=== PATIENT | female | born 1990 | race Caucasian/White ===

== ENCOUNTER → 2020-06-09 | Outpatient (CLI) | payer MEDICAID ==
[2020-06-09 16:46] LABS: HCT 41.6 % (34.0-46.0); HGB 14.1 gm/dL (11.4-16.0); MCH 27.3 pg (25.0-35.0); MCHC 33.8 g/dL (31.0-37.0); MCV 80.9 fL (80.0-100.0); Mean Platelet Volume 7.5; Platelet Count 316 k/uL (150-450); RBC 5.14 m/uL (3.80-5.40); RDW 14.3 % (11.5-15.5); WBC 12.7 k/uL (3.8-10.6)
[2020-06-10 01:58] LABS: HIV 2 AB Non-Reactive (Non-Reactive); HIV AB P24 Non-Reactive (Non-Reactive); HIV P24 AG Non-Reactive (Non-Reactive)
[2020-06-10 04:25] LABS: Hepatitis B Surface Antigen Non-Reactive (Non-Reactive)
--- NOTE | 2020-06-10 07:16 | US ---
EXAMINATION TYPE: Transabdominal DATE OF EXAM: 06/09/2020 4:43 PM COMPARISON: NONE CLINICAL HISTORY: Z34.81, Z36 CONFIRM DATES. Confirm Dates EXAM PERFORMED: Transvaginal (TV) and Transabdominal (TA), endovaginal scanning performed for better evaluation of the EXAM MEASUREMENTS: GESTATIONAL AGE / DATING Physician Established: (8 weeks/4 days) EDC: 01/15/2021 Dates by LMP: (8 weeks/4 days) EDC: 01/15/2021 Dates by First Scan: No prior Dates by Current Scan for: (6 weeks/5 days) EDC: 01/28/2021 MATERNAL ANATOMY Uterus: 9.7 x 6.0 x 6.5 cm Right Ovary: 2.58 x 2.0 x 2.5 cm Left Ovary: 3.8 x 2.6 x 2.5 cm Post CDS / Adnexa: wnl Presence of free fluid: No Presence of corpus luteal cyst: Left Ovary= 2.3 x 2.0 x 2.2 cm Presence of subchorionic bleed: No GESTATION / SURVEY CRL: 1.2 cm (7 weeks/3 days) MSD: 1.6 cm (5 weeks/6 days) Yolk Sac (normal less than 6mm): 5mm Heart Rate: 155 bpm Rhythm: Normal IUP: Viable IUP Date of LMP: 04/10/2020 Single, viable IUP/ Gestational sac measuring small for crown rump length/ Yolk sac also measuring upper limits of normal IMPRESSION: Single viable intrauterine corresponding to ultrasound age 6 weeks 5 days with estimated da te of delivery 01/28/2021 as above.
== END | disposition home or self-care (01) ==
LOC: RADUSWWP 15:47
PROVIDERS: ATTEND Obstetrics & Gynecology
DX: Z36.9 Encounter for antenatal screening, unspecified (principal); Z3A.01 Less than 8 weeks gestation of pregnancy; Z34.81 Encounter for supervision of other normal pregnancy, first trimester
CPT/HCPCS: 76801; 76817; 82947; 85027; 86592; 86762; 86780; 86850; 86900; 86901; 87340; 87390

== ENCOUNTER → 2020-11-02 | Outpatient (CLI) | payer MEDICAID ==
[2020-11-02 15:25] LABS: MCH 26.7 pg (27.0-32.0); MCHC 32.4 g/dL (32.0-37.0); MCV 82.4 fL (80.0-97.0); Mean Platelet Volume 12.1 fL (9.5-12.2); Platelet Count 246 X 10*3/uL (140-440); RBC 4.49 X 10*6/uL (4.10-5.20); RDW 13.8 % (11.5-14.5); WBC 12.85 X 10*3/uL (4.50-10.00)
== END | disposition home or self-care (01) ==
LOC: LABWHC1 09:46
PROVIDERS: ATTEND Obstetrics & Gynecology
DX: Z34.82 Encounter for supervision of other normal pregnancy, second trimester (principal); Z3A.00 Weeks of gestation of pregnancy not specified
CPT/HCPCS: 36415; 82950; 85027

== ENCOUNTER 2020-12-21 09:35 | Outpatient (CLI) | payer MEDICAID ==
[2020-12-21] MEDS ORDERED: LABETALOL 5 MG/ML VIAL MDV IVP PRN ×3 (09:56)
[2020-12-21] MEDS ORDERED: hydrALAZINE HCL 20 MG/ML 1 ML VIAL IVP PRN (09:56)
[2020-12-21 10:33] LABS: Basophils # (A) 0.1 k/uL (0-0.2); Basophils % (A) 0 %; Eosinophils # (A) 0.4 k/uL (0-0.7); Eosinophils % (A) 3 %; HGB 12.7 gm/dL (11.4-16.0); Lymphocytes # (A) 1.2 k/uL (1.0-4.8); Lymphocytes % (A) 9 %; MCH 26.5 pg (25.0-35.0); MCHC 34.5 g/dL (31.0-37.0); MCV 76.8 fL (80.0-100.0); Monocytes # (A) 0.5 k/uL (0-1.0); Monocytes % (A) 4 %; Neutrophils # (A) 11.1 k/uL (1.3-7.7); Neutrophils % (A) 83 %; Platelet Count 242 k/uL (150-450); RBC 4.81 m/uL (3.80-5.40); RDW 14.2 % (11.5-15.5); WBC 13.5 k/uL (3.8-10.6)
[2020-12-21 10:42] LABS: INR 0.9 (<1.2)
[2020-12-21 10:43] LABS: Partial Thromboplastin Time 23.3 sec (22.0-30.0); Prothrombin Time 9.7 sec (9.0-12.0)
[2020-12-21] MEDS ORDERED: LACTATED RINGERS 1,000 ML IV SCH (10:45)
[2020-12-21 10:48] LABS: Appearance,Urine Clear (Clear); Color,Urine Light Yellow; Glucose,Urine (UA) Negative (Negative); Ketones,Urine 1+ (Negative); Protein,Urine Negative (Negative); Specific Gravity,Urine <1.005 (1.001-1.035)
[2020-12-21 10:49] LABS: Bilirubin,Urine Negative (Negative); Blood,Urine Negative (Negative); Leukocyte Esterase,Urine Negative (Negative); Nitrite,Urine Negative (Negative); Urobilinogen,Urine <2.0 mg/dL (<2.0)
[2020-12-21 10:52] LABS: ALT 13 U/L (4-34); AST 19 U/L (14-36); African American GFR (CKD) >90 (>60 ml/min/1.73 sqM); Blood Urea Nitrogen 9 mg/dL (7-17); LDH 409 U/L (313-618); Non-African American GFR(CKD) >90 (>60 ml/min/1.73 sqM); Uric Acid 6.9 mg/dL (3.7-7.4)
[2020-12-21 10:54] LABS: Creatinine,Urine Random 52.5 mg/dL; Protein/Creatinine Ratio,Urine 0.305
[2020-12-21] MEDS ORDERED: BETAMET ACET-BETAMETH SOD PHOS 6 MG/ML MDV IM SCH (12:30)
[2020-12-21 16:54] VITALS: BP 148/108; PULSE 108; RESP 16; TEMP 98.4
--- NOTE | 2021-01-07 08:25 | P.MSEPDOC ---
Presenting Problems - Arrival Data Date of Arrival on Unit: 12/21/20 Time of Arrival on Unit: 09:36 Mode of Transport: Ambulatory - Complaint OB-Reason for Admission/Chief Complaint: PIH Medical History - Information : 4 Para: 2 Term: 1 : 1 Abortions: Spontaneous or Elective: 1 Number of Living Children: 2 - Gestational Age Gestational Age by MARCELINO (wks/days): 36 Weeks and 3 Days - History Complications: Chronic HTN Review of Systems - Review of Systems Constitutional: No problems Breast: No problems ENT: No problems Cardiovascular: No problems Respiratory: No problems Gastrointestinal: No problems Genitourinary: No problems Musculoskeletal: No problems Neurological: No problems Skin: No problems Vital Signs - Temperature Temperature: 98.4 F Temperature Source: Temporal Artery Scan - Pulse Left Brachial Pulse Rate: 108 Pulse Assessment Method: Automatic Cuff - Respirations Respiratory Rate: 16 Oxygen Delivery Method: Room Air O2 Sat by Pulse Oximetry: 98 - Blood Pressure Right Arm Sitting Blood Pressure: 148/108 Blood Pressure Mean: 121 Blood Pressure Source: Automatic Cuff Medical Screen Scoring - Assessment - Baby A Baseline FHR: 135 Heart Rate - NICHD Category: Category I (Normal) Physician Notification - Physician Notified Physician Notified Date: 12/21/20 Physician Notified Time: 10:39 Physician: Ezra Garcias New Order Received: Yes - Notification Comment Comment: Sent from office with Script Maternal Triage Index - Maternal Triage Index Presenting for scheduled procedure w/no complaint: No - Stat/Priority 1 Stat Priority 1: No - Urgent/Priority 2 Urgent Priority 2: Yes Provider Notified: Ezra Garcias Provider Notified Time: 10:37 Criteria Met for Priority 2: SBP>140 DBP>90 Disposition - Disposition OB Disposition: Transfer to other dept./facility Transferred to:: [facility] Discharge Date: 12/21/20 Discharge Time: 13:00 I agree with the RN Medical Screening Exam: Yes Case reviewed; plan agreed upon as documented in EMR&OBIX.: Yes Diagnosis: GESTATIONAL HTN W/O SIGNIFICANT PROTEINURIA, THIRD TRIMESTER
== END 2020-12-21 13:00 | disposition home or self-care (01) ==
LOC: FBPOP 09:35
PROVIDERS: ATTEND Obstetrics & Gynecology
DX: O14.90 Unspecified pre-eclampsia, unspecified trimester (principal); Z3A.00 Weeks of gestation of pregnancy not specified
CPT/HCPCS: 59025; 96360; 96361; 82570; 84156; 82565; 83615; 84450; 84460; 84520; 84550; 85025; 85384; 85610; 85730; 81003; J0702

== ENCOUNTER → 2022-05-02 | Outpatient (CLI) | payer OTHER ==
--- NOTE | 2022-05-02 15:57 | CT ---
EXAMINATION TYPE: CT soft tissue neck w con DATE OF EXAM: 05/02/2022 COMPARISON: none HISTORY: pt states internal lump on Rt side of neck. CT DLP: 835.20 mGycm CONTRAST: CT scan of the neck is performed with IV Contrast, patient injected with 70 mL of Isovue 300. Contrast enhanced CT of the neck was performed from the skull base through the lung apices. AIRWAY: The supraglottic, glottic, and subglottic portions of the airway appear patent and free of mass. SALIVARY GLANDS: The submandibular and parotid glands are free of mass or inflammatory process. THYROID GLAND: Hypoattenuating nodule right thyroid lobe measures approximately 1.6 x 1.7 cm. Conside r ultrasound correlation. LYMPH NODES: No adenopathy seen greater than 1cm. LUNG APICES: No nodule or mass is seen. OTHER: Vascular structures are patent. No significant degenerative change of the cervical spine. N o abscess seen. Mucous retention cyst right maxillary sinus. IMPRESSION: 1. Right thyroid nodule. Ultrasound correlation recommended. No additional nodules seen at this time.
== END | disposition home or self-care (01) ==
LOC: RADCTMAIN 14:43
PROVIDERS: ATTEND Family Medicine
DX: E04.1 Nontoxic single thyroid nodule (principal)
CPT/HCPCS: 70491; Q9967

== ENCOUNTER → 2023-03-16 | Outpatient (CLI) | payer MEDICAID ==
--- NOTE | 2023-03-16 11:33 | US ---
EXAMINATION TYPE: US thyroid st tissue head/neck DATE OF EXAM: 03/16/2023 COMPARISON: 05/02/22 CLINICAL INDICATION: Female, 32 years old with history of R59.0 LOCALIZED ENLARGED LYMPH NODES; rt no dule on prior CT GLAND SIZE: Right Lobe: 5.0x2.0x2.2 cm Overall Parenchyma: homogenous Left Lobe: 6.1x2.1x1.7 cm Overall Parenchyma: homogeneous Isthmus Thickness: 0.9 cm NODULES RIGHT: # of nodules measured on right: 1 1. 1.1 X 1.2 x 1.3 cm, lower medial, solid or almost completely solid, hypoechoic TR 4 nodule, whic h is wider than tall, with ill-defined margins, without echogenic foci. The nodule on CT measured approximately 1.6 x 1.7 cm LEFT: # of nodules measured on left: 0 ISTHMUS: # of nodules measured in the isthmus: 0 Bilateral neck scanned, no evidence of lymphadenopathy. IMPRESSION: 1. Borderline to mild thyromegaly. 2. The possible nodule seen on the patient's CT is not clearly identified by ultrasound. There does a ppear to be a smaller 1.3 cm TR4 nodule at the right lower pole. Reassess at follow-up. FNA if it gee ches 1.5 cm.
== END | disposition home or self-care (01) ==
LOC: RADUSWWP 09:34
PROVIDERS: ATTEND Family Medicine
DX: E01.0 Iodine-deficiency related diffuse (endemic) goiter (principal); R59.0 Localized enlarged lymph nodes
CPT/HCPCS: 76536

== ENCOUNTER → 2024-03-19 | Outpatient (CLI) | payer MEDICAID ==
--- NOTE | 2024-03-19 15:08 | US ---
EXAMINATION TYPE: US thyroid st tissue head/neck DATE OF EXAM: 03/19/2024 COMPARISON: [id number] CLINICAL INDICATION: Female, 33 years old with history of E04.1 THYROID NODULE; thy nodule GLAND SIZE: Right Lobe: 5.1 x 2.6 x 2.1 cm Overall Parenchyma: homogeneous Left Lobe: 5.8 x 1.7 x 2.3 cm Overall Parenchyma: homogeneous Isthmus Thickness: .5 cm NODULES RIGHT: # of nodules measured on right: 0 LEFT: # of nodules measured on left: 0 ISTHMUS: # of nodules measured in the isthmus: 0 Bilateral neck scanned, no evidence of lymphadenopathy. IMPRESSION: Thyromegaly. No sizable nodules are seen on today's exam. 2017 ACR TI-RADS LEVEL: TR-RADS 1 - BENIGN: No FNA *Highest TI-RADS level nodule reported
== END | disposition home or self-care (01) ==
LOC: RADUSWWP 12:31
PROVIDERS: ATTEND Family Medicine
DX: E04.1 Nontoxic single thyroid nodule
CPT/HCPCS: 76536